=== PATIENT | male | born 1950 | race Hispanic/Latino ===

== ENCOUNTER 2017-01-16 10:38 | Outpatient (CLI) | payer BC, MEDICARE ==
--- NOTE | 2017-01-16 13:23 | Cat Scan Report ---
C7 and pelvis without IV contrast: History right upper quadrant pain. Findings: Evidence of emphysema. No pleural or pericardial effusion. Normal liver spleen pancreas. Patient status post cholecystectomy. Minimal thickening of the wall of the stomach and duodenum. Normal adrenals. 4 mm nonobstructing calculus and a 1 mm nonobstructing calculus left kidney. No evidence of hydronephrosis. Normal bladder. No free intraperitoneal fluid or air. No evidence of adenopathy. Gaseous colon with moderate volume stool in colon. No evidence of appendicitis or diverticulitis. No bowel distention. Impression: Emphysema. Probable peptic disease. Nonobstructing calculi left kidney.
== END 2017-01-16 10:39 | disposition home or self-care (01) ==
LOC: CT 10:38
PROVIDERS: ATTEND Urology
DX: N20.0 Calculus of kidney (principal); J43.9 Emphysema, unspecified; F41.9 Anxiety disorder, unspecified; F17.200 Nicotine dependence, unspecified, uncomplicated; Z90.49 Acquired absence of other specified parts of digestive tract
CPT/HCPCS: 74176